=== PATIENT | female | born 1990 | race African-American/Black ===

== ENCOUNTER 2019-03-12 17:04 | Inpatient (IN) ==
[2019-03-12] MEDS ORDERED: BETAMETH SODIUM PHOS/ACETATE 30 MG/5 ML VIAL IM SCH (17:30)
[2019-03-12] MEDS ORDERED: ONDANSETRON 4 MG/2 ML VIAL IV PRN (19:22)
[2019-03-12] MEDS ORDERED: MAGNESIUM SULF RIDER 100 ML IV ONE (19:25)
[2019-03-12] MEDS ORDERED: MAGNESIUM SULF DRIP 40 GM/1,000 ML ML IV SCH (19:30)
[2019-03-12] MEDS ORDERED: LACTATED RINGERS 1,000 ML IV SCH (19:30)
[2019-03-12 19:53] LABS: Basophils % 0.2 % (0.0-0.8); Hematocrit 35.8 VOL% (35.7-47.0); Immature Granulocytes % 1.5 %; Immature Granulocytes Absolute 0.34 #; Lymphocytes # 1.7 10*3/uL (1.4-4.0); Lymphocytes % 7.3 % (21.3-54.2); Mean Corpuscular HGB Conc 33.5 GM/DL (32-36); Mean Corpuscular Volume 83.4 FL (87-102); Mean Platelet Volume 10.2 FL (9.6-12.0); Monocytes % 4.6 % (1.7-12.7); Neutrophils % 86.4 % (38.7-73.9); Platelet Count 213 T/CUMM (130-400); Red Blood Count 4.29 MC/CUMM (3.8-5.5); Red Cell Distribution Width 13.6 % (9.3-17.3); White Blood Count 23.1 T/CUMM (4-12)
[2019-03-12 20:12] LABS: Band Neutrophils 1 % (0-10); Lymphocytes 9 % (20-55); Platelet Estimate Normal; Segmented Neutrophils 89 % (50-85); Total Cells Counted 100
[2019-03-12 21:29] LABS: Apearance,Urine CLEAR (Clear); Bilirubin,Urine Negative (Negative); Blood, Urine Small mg/dL (Negative); Glucose,Urine (UA) Negative (Negative); Ketones,Urine Negative (Negative); Mucus,Urine Occasional /LPF (Occasional); Nitrite,Urine Negative (Negative); Protein,Urine Negative; RBC,Urine 1 /HPF (0-4); Squamous Epithelial Cell,Urine Occasional /HPF (0-10); Urine Color Straw (Yellow); Urine Specific Gravity 1.008 (1.001-1.035); Urine Urobilinogen < 2.0 EU/DL (0.2-1.0); WBC,Urine <1 /HPF (0-6)
== END 2019-03-12 22:14 | disposition hospice, home (50) | DRG 832 ==
LOC: N.LDOUT 17:04 → N.LD 17:09
PROVIDERS: ADMIT Obstetrics & Gynecology; ATTEND Obstetrics & Gynecology

== ENCOUNTER 2019-03-23 02:52 | Inpatient (IN) ==
[2019-03-23] MEDS ORDERED: CLINDAMYCIN INJ 600 MG in PREMIX 1 EACH IV STA (04:25)
[2019-03-23 04:33] LABS: Basophils % 0.2 % (0.0-0.8); Eosinophils % 0.2 % (0.00-10.9); Hematocrit 31.3 VOL% (35.7-47.0); Hemoglobin 9.9 GM/DL (12.0-16.0); Immature Granulocytes % 4.8 %; Immature Granulocytes Absolute 0.83 #; Lymphocytes # 2.2 10*3/uL (1.4-4.0); Mean Corpuscular HGB Conc 31.6 GM/DL (32-36); Mean Corpuscular Volume 86.2 FL (87-102); Mean Platelet Volume 9.9 FL (9.6-12.0); Monocytes % 6.3 % (1.7-12.7); Neutrophils % 75.5 % (38.7-73.9); Platelet Count 195 T/CUMM (130-400); Red Blood Count 3.63 MC/CUMM (3.8-5.5); Red Cell Distribution Width 13.2 % (9.3-17.3); White Blood Count 17.1 T/CUMM (4-12)
[2019-03-23] MEDS ORDERED: ONDANSETRON 4 MG/2 ML VIAL IV PRN (04:38)
[2019-03-23] MEDS ORDERED: ACETAMINOPHEN 325 MG TABLET PO PRN (04:38)
[2019-03-23 04:52] LABS: Alanine Aminotransferase 30 U/L (13-56); Alkaline Phosphatase 137 U/L (45-117); Aspartate Amino Transferase 16 U/L (0-37); Bilirubin,Total < 0.39 MG/DL (0.2-1.0); Blood Urea Nitrogen 14 MG/DL (7-18); Calcium 8.3 MG/DL (8.5-10.1); Estimated Glom Filtration Rate 123 ML/MIN; Glucose 89 MG/DL (74-106); Osmolality,Calculated 278.4 MOS/KG (273-304); Total Protein 6.7 G/DL (6.4-8.3)
[2019-03-23 04:55] LABS: Band Neutrophils 4 % (0-10); Hypochromasia 1+; Lymphocytes 15 % (20-55); Platelet Estimate Adequate; Segmented Neutrophils 74 % (50-85); Total Cells Counted 100
[2019-03-23] MEDS: FAMOTIDINE 20 MG/2 ML VIAL IV SCH ×2 (07:29→16:52)
[2019-03-23] MEDS: LACTATED RINGERS 1,000 ML IV SCH ×3 (07:29→20:24)
[2019-03-23] MEDS: CLINDAMYCIN INJ 600 MG in PREMIX 1 EACH IV SCH ×3 (09:52→22:29)
[2019-03-23] MEDS ORDERED: ceFAZolin 1,000 MG in SYRINGE 1 EACH IV SCH (11:00)
[2019-03-23] MEDS ORDERED: IBUPROFEN 800 MG TABLET PO PRN (11:50)
[2019-03-23] MEDS: AMPICILLIN INJ 2,000 MG in SODIUM CHLORIDE 0.9% 100 ML IV SCH ×2 (13:22→20:19)
[2019-03-23] MEDS: GENTAMICIN INJ 500 MG in SODIUM CHLORIDE 0.9% 100 ML IV SCH (14:34)
[2019-03-23] MEDS ORDERED: SODIUM CHLORIDE 0.45% 1,000 ML IV SCH (16:30)
[2019-03-23] MEDS ORDERED: diphenhydrAMINE CAP 50 MG CAPSULE PO ONE (22:04)
[2019-03-24] MEDS ORDERED: fentaNYL 100 MCG/2 ML VIAL IV ONE (00:01)
[2019-03-24] MEDS: CLINDAMYCIN INJ 600 MG in PREMIX 1 EACH IV SCH ×3 (04:20→18:08)
[2019-03-24] MEDS: AMPICILLIN INJ 2,000 MG in SODIUM CHLORIDE 0.9% 100 ML IV SCH ×3 (05:04→21:23)
[2019-03-24] MEDS: FAMOTIDINE 20 MG/2 ML VIAL IV SCH ×2 (05:18→21:25)
[2019-03-24 06:28] LABS: Basophils % 0.2 % (0.0-0.8); Eosinophils # 0.1 10*3/uL (0.0-0.87); Eosinophils % 0.7 % (0.00-10.9); Hematocrit 31.9 VOL% (35.7-47.0); Immature Granulocytes % 2.3 %; Immature Granulocytes Absolute 0.26 #; Lymphocytes # 2.8 10*3/uL (1.4-4.0); Lymphocytes % 24.2 % (21.3-54.2); Mean Corpuscular HGB Conc 31.3 GM/DL (32-36); Mean Corpuscular Volume 85.5 FL (87-102); Mean Platelet Volume 9.7 FL (9.6-12.0); Monocytes % 5.5 % (1.7-12.7); Neutrophils % 67.1 % (38.7-73.9); Platelet Count 290 T/CUMM (130-400); Red Blood Count 3.73 MC/CUMM (3.8-5.5); Red Cell Distribution Width 13.2 % (9.3-17.3); White Blood Count 11.4 T/CUMM (4-12)
[2019-03-24] MEDS ORDERED: DIAZEPAM 5 MG TABLET PO ONE (06:30)
[2019-03-24] MEDS ORDERED: MIDAZOLAM 2 MG/2 ML VIAL IV ONE (06:30)
[2019-03-24 07:02] LABS: Calcium 8.4 MG/DL (8.5-10.1); Osmolality,Calculated 281.1 MOS/KG (273-304)
[2019-03-24] MEDS: SODIUM CHLORIDE 0.45% 1,000 ML IV SCH (08:52)
[2019-03-24] MEDS: LACTATED RINGERS 1,000 ML IV SCH ×3 (08:54→21:29)
[2019-03-24] MEDS ORDERED: MIDAZOLAM 2 MG/2 ML VIAL ONE (09:31)
[2019-03-24] MEDS ORDERED: fentaNYL 100 MCG/2 ML VIAL ONE (09:31)
[2019-03-24] MEDS: IBUPROFEN 800 MG TABLET PO SCH ×2 (10:54→18:08)
[2019-03-24] MEDS: GENTAMICIN INJ 500 MG in SODIUM CHLORIDE 0.9% 100 ML IV SCH (15:10)
[2019-03-25] MEDS: CLINDAMYCIN INJ 600 MG in PREMIX 1 EACH IV SCH ×5 (00:10→23:49)
[2019-03-25] MEDS: IBUPROFEN 800 MG TABLET PO SCH ×5 (03:19→17:33)
[2019-03-25] MEDS: AMPICILLIN INJ 2,000 MG in SODIUM CHLORIDE 0.9% 100 ML IV SCH ×3 (06:20→20:58)
[2019-03-25] MEDS: LACTATED RINGERS 1,000 ML IV SCH ×2 (06:22→13:15)
[2019-03-25] MEDS: SODIUM CHLORIDE 0.45% 1,000 ML IV SCH (07:48)
[2019-03-25] MEDS: FAMOTIDINE 20 MG/2 ML VIAL IV SCH ×2 (08:21→20:53)
[2019-03-25] MEDS: GENTAMICIN INJ 500 MG in SODIUM CHLORIDE 0.9% 100 ML IV SCH (13:47)
[2019-03-25] MEDS: SERTRALINE 25 MG TABLET PO SCH (20:53)
[2019-03-25] MEDS: MELATONIN 3 MG TABLET PO SCH (20:53)
[2019-03-26] MEDS: LACTATED RINGERS 1,000 ML IV SCH ×5 (02:04→20:59)
[2019-03-26] MEDS: IBUPROFEN 800 MG TABLET PO SCH ×4 (02:39→17:32)
[2019-03-26] MEDS: AMPICILLIN INJ 2,000 MG in SODIUM CHLORIDE 0.9% 100 ML IV SCH (04:48)
[2019-03-26] MEDS: CLINDAMYCIN INJ 600 MG in PREMIX 1 EACH IV SCH ×4 (05:59→23:39)
[2019-03-26 06:45] LABS: Eosinophils # 0.1 10*3/uL (0.0-0.87); Eosinophils % 0.9 % (0.00-10.9); Hematocrit 30.4 VOL% (35.7-47.0); Hemoglobin 9.6 GM/DL (12.0-16.0); Immature Granulocytes % 2.6 %; Immature Granulocytes Absolute 0.21 #; Lymphocytes # 2.1 10*3/uL (1.4-4.0); Lymphocytes % 25.6 % (21.3-54.2); Mean Corpuscular HGB Conc 31.6 GM/DL (32-36); Mean Corpuscular Volume 84.7 FL (87-102); Monocytes % 5.7 % (1.7-12.7); Neutrophils % 65.2 % (38.7-73.9); Platelet Count 325 T/CUMM (130-400); Red Blood Count 3.59 MC/CUMM (3.8-5.5); Red Cell Distribution Width 12.9 % (9.3-17.3); White Blood Count 8.1 T/CUMM (4-12)
[2019-03-26] MEDS: ceFAZolin 2,000 MG in PREMIX 1 EACH IV SCH ×2 (09:01→15:56)
[2019-03-26] MEDS: FAMOTIDINE 20 MG/2 ML VIAL IV SCH ×2 (09:02→21:00)
[2019-03-26] MEDS: GENTAMICIN INJ 500 MG in SODIUM CHLORIDE 0.9% 100 ML IV SCH (14:15)
[2019-03-26] MEDS: MELATONIN 3 MG TABLET PO SCH (21:00)
[2019-03-26] MEDS: SERTRALINE 25 MG TABLET PO SCH (21:00)
[2019-03-27] MEDS: ceFAZolin 2,000 MG in PREMIX 1 EACH IV SCH ×2 (00:47→09:41)
[2019-03-27] MEDS: IBUPROFEN 800 MG TABLET PO SCH ×2 (01:50→09:42)
[2019-03-27] MEDS: CLINDAMYCIN INJ 600 MG in PREMIX 1 EACH IV SCH (05:32)
[2019-03-27] MEDS: LACTATED RINGERS 1,000 ML IV SCH (06:25)
[2019-03-27] MEDS: FAMOTIDINE 20 MG/2 ML VIAL IV SCH (09:42)
[2019-03-27 11:31] VITALS: BP 128/61
== END 2019-03-27 13:17 | disposition home or self-care (01) | DRG 776 ==
LOC: N.ED 02:52 → N.EDINP 04:38 → N.3E 05:53 → N.5E 03-24 16:32
PROVIDERS: ADMIT Obstetrics & Gynecology; ATTEND Obstetrics & Gynecology

== ENCOUNTER → 2020-07-18 00:45 | Observation (INO) ==
[2020-07-17 23:56] LABS: Bacteria,Urine Few /HPF (Few); Bilirubin,Urine Negative (Negative); Blood, Urine Negative (Negative); Glucose,Urine (UA) >=500 mg/dL (Negative); Ketones,Urine Negative (Negative); Mucus,Urine Occasional /LPF (Occasional); Nitrite,Urine Negative (Negative); Protein,Urine Negative; RBC,Urine 2 /HPF (0-4); Squamous Epithelial Cell,Urine Occasional /HPF (0-10); Urine Appearance CLEAR (Clear); Urine Color Yellow (Yellow); Urine Urobilinogen < 2.0 EU/DL (0.2-1.0); WBC,Urine 4 /HPF (0-6)
== END | disposition home or self-care (01) ==
LOC: N.LD
PROVIDERS: ADMIT Obstetrics & Gynecology; ATTEND Obstetrics & Gynecology